=== PATIENT | female | born 1955 | race Caucasian/White ===

== ENCOUNTER → 2020-04-21 14:25 | Outpatient (BNVA) | payer MEDICARE, SELFPAY | PROVIDERS: PCP Internal Medicine; Visit Provider Orthopaedic Surgery | DX: M79.89 Other specified soft tissue disorders (principal) | CPT/HCPCS: 99202 ==

== ENCOUNTER 2020-05-20 09:51 | Day surgery (SDC) | payer MEDICARE, SELFPAY ==
[2020-05-19 09:39] VITALS: BMI 31.4
[2020-05-20 10:04] VITALS: BP 146/74; PULSE 64; RESP 18; TEMP 36.8; O2SAT 95
[2020-05-20 13:10] VITALS: BP 168/77; PULSE 51; RESP 16; O2SAT 98
--- NOTE | 2020-05-20 14:50 | MHC.SHP ---
Pre-Procedural Eval Section B Chief Complaint: soft tissue disorder Allergies: Allergies Allergy/AdvReac Type Severity Reaction Status Date / Time No Known Allergies Allergy Verified 04/21/20 15:02 Plan I have reviewed the history and physical and performed a pertinent physical examination on my patient. No changes have occurred unless specified.
--- NOTE | 2020-05-20 14:50 | W.PM.OPN ---
Operative Note Operative Note Date of Service: 05/20/20 Narrative: Preop diagnosis: 1. Left dorsal hand mass Postop diagnosis: 1. Left dorsal hand mass Procedure: 1. Left dorsal hand mass excisional biopsy, 5 mm Surgeon: Rena Mon MD Anesthesia: local block using 1% lidocaine with epinephrine Findings: 5 mm mobile, yellow dorsal hand mass sent for histopathology EBL: Less than 5 mL Specimens: Left dorsal hand mass Complications: None Disposition: Brought to recovery room in stable condition Plan: Follow-up for 7-10 days for wound check and suture removal, and to check pathology Indications: The patient is 64 years old, with a left dorsal hand mass that has been unresponsive to nonoperative management. The risks and benefits of operative treatment including but not limited to risk of damage to blood vessels, nerves, tendons, infection, persistent pain, persistent symptoms, or possible need for additional surgery were discussed with the patient and the patient wishes to proceed with surgery. Procedure: Once consent was obtained a local block was performed using a combination of 1% lidocaine with epinephrine. The patient was then brought back to the operating suite and placed on the operative table in supine position. A tourniquet was applied to the proximal aspect of the left upper extremity and the limb was prepped and draped in a standard surgical fashion. Once assured that we had a good block, a 1.2 cm longitudinal incision was made centered over the left dorsal hand mass over the dorsal aspect of the 2nd metacarpal neck . The incision was made through the skin to the subcutaneous tissues using a #15 blade. Dissection was made down to the level of the soft tissue mass using tenotomy scissors. The mass was approximate 4 mm x 5 mm, mobile, yellow in color and solid. It was attached by a stalk distally to an area near the 2nd metacarpal head. This was dissected free and placed on the back table be sent for histopathology.. At this point the wound was copiously irrigated with normal saline and hemostasis was obtained with a brief period of local pressure. The skin edges were reapproximated with some 5.0 nylon suture material and a sterile dressing was applied. The patient appears to have tolerated the procedure well and with no complications. All digits were well vascularized at the conclusion of the case.
== END 2020-05-20 13:30 | disposition home or self-care (01) ==
PROVIDERS: PCP Internal Medicine; Visit Provider Orthopaedic Surgery
PROC: (CPT 26115; principal; 2020-05-20 11:00)
DX: D17.22 Benign lipomatous neoplasm of skin and subcutaneous tissue of left arm (principal); M79.89 Other specified soft tissue disorders; I10 Essential (primary) hypertension; F32.9 Major depressive disorder, single episode, unspecified; F17.200 Nicotine dependence, unspecified, uncomplicated; Z79.899 Other long term (current) drug therapy
CPT/HCPCS: 26115; 88304

== ENCOUNTER → 2020-05-31 11:09 | Outpatient (BNVA) | payer MEDICARE, SELFPAY | PROVIDERS: PCP Internal Medicine; Visit Provider Orthopaedic Surgery | DX: Z48.817 Encounter for surgical aftercare following surgery on the skin and subcutaneous tissue (principal); Z87.2 Personal history of diseases of the skin and subcutaneous tissue | CPT/HCPCS: 99212 ==

== ENCOUNTER 2020-08-04 19:26 | Emergency (ER) | payer MEDICARE, SELFPAY ==
--- NOTE | ~2020-08-04 | CT_ITS ---
EXAMINATION: CT ABDOMEN AND PELVIS WITH CONTRAST CLINICAL INFORMATION: Left flank pain. Hematuria. COMPARISON: None TECHNIQUE: Multidetector volumetric images were obtained from the superior aspect of the liver through the pubic symphysis following administration 85 mL of Omnipaque 350 intravenous contrast. Sagittal and coronal reformatted images were obtained on the technologist's workstation. Oral contrast: No This CT examination was performed using dose optimization techniques as appropriate, variously including the following: *Automated exposure control *Adjustment of mA and/or kV according to patient size (this includes techniques or standardized protocols for targeted exams where dose is matched to indication/reason for exam; i.e. extremities or head) *Use of iterative reconstruction technique DLP: 762 mGy-cm FINDINGS: LUNG BASES: The visualized lung bases are unremarkable. LIVER, GALLBLADDER, AND BILIARY TREE: The liver is normal in size, shape, and attenuation. No focal hepatic lesion or biliary ductal dilatation is present. The gallbladder is unremarkable with no evidence of radiopaque gallstones, gallbladder wall thickening, or obvious pericholecystic inflammatory changes. PANCREAS: Unremarkable. SPLEEN: Unremarkable. ADRENAL GLANDS: Unremarkable. KIDNEYS AND URETERS: Left kidney: Mild hydronephrosis of the kidney. Mild distention of renal pelvis and calyces. There is a stone in the left renal pelvis measuring 0.9 x 0.6 cm. Density measurement 1097 Hounsfield units. This stone lies 10.3 cm from the posterior skin line. There is a less than 1 mm stone also in the lower pole left kidney. The kidney has normal cortical thickness and enhancement. Right kidney: Normal right kidney. No calculus or hydronephrosis. Normal cortical thickness and enhancement. BLADDER: Unremarkable. GASTROINTESTINAL TRACT: The small and large bowel are unremarkable. The appendix is unremarkable. ABDOMINAL WALL: No significant hernia is appreciated. LYMPH NODES: Normal. VASCULAR: Atherosclerotic vascular calcifications of aorta and iliac arteries. There is no aneurysm. PELVIC VISCERA: Unremarkable. OSSEOUS STRUCTURES: Unremarkable. CT/CT abdomen pelvis w con IMPRESSION: Mild hydronephrosis of left kidney. There is a 9 mm stone in the left renal pelvis.
[2020-08-04 20:52] VITALS: BP 148/73; PULSE 57; RESP 16; TEMP 36.9; O2SAT 97; BMI 32.3
[2020-08-04 21:59] VITALS: BP 154/74; PULSE 53; RESP 17; TEMP 36.8; O2SAT 96
[2020-08-04 22:37] LABS: Appearance Urine HAZY; Basophils Percent Auto 0.3 % (0-2); Color Urine YELLOW; Eosinophils Percent Auto 0.5 % (0-4); Glucose Urine UA NEG (NEG); Hematocrit 41.1 % (37-47); Hemoglobin 13.7 g/dl (12.0-16.0); Imm Gran Abs Auto 0.02 X10*3/uL (0.00-0.03); Imm Gran Pct Auto 0.3 % (0.0-0.4); Leukocyte Esterase Urine NEG (NEG); Lymphocytes Absolute Auto 2.2 X10*3/uL (1.2-4.9); Lymphocytes Percent Auto 30.1 % (20-40); MANUAL DIFF FLAG NO; Mean Corpuscular HGB Conc 33.3 g/dl (31.0-35.0); Mean Platelet Volume 9.7 fL (9.4-12.3); Monocytes Absolute Auto 0.5 X10*3/uL (0.1-1.2); Monocytes Percent Auto 6.4 % (2-11); Neutrophils Absolute Auto 4.6 X10*3/uL (2.0-8.3); Neutrophils Percent Auto 62.4 % (45-73); Nitrite Urine NEG (NEG); Platelet Count 198 X10*3/uL (160-400); Red Blood Count 4.42 X10*6/uL (4.20-5.50); Red Cell Distribution Width 12.5 % (11.0-16.0); Specific Gravity - Urine >= 1.030 (1.005-1.025); Urine Blood 3+ (NEG); Urine Ketones NEG (NEG); Urine Protein 1+ MG/DL (NEG-TRACE); White Blood Count 7.4 X10*3/uL (4.8-10.8)
[2020-08-04 22:46] LABS: Bacteria Urine 1+ /LPF; WBC Urine 0 /HPF (0-4)
--- NOTE | 2020-08-04 22:52 | ED.FEMALEGU ---
HPI - Female Genitourinary General Chief complaint: Urogenital-Female Stated complaint: blood in urine Time Seen by Provider: 08/04/20 22:50 Source: patient Mode of arrival: ambulatory History of Present Illness HPI Narrative: This is a 64-year-old female without significant past medical history who presents with nausea and an isolated episode of vomiting this morning with continued chills throughout the day but denies any diarrhea, abdominal pain, urinary pain/burning but has been having frequency. Patient does describe left flank ?discomfort? that is been ongoing for the past 2-3 weeks that she attributed to back pain. However, she does have a history significant for renal colic approximately 10 years ago. In addition, she noted that her urine was ?bloody? today. Related Data Home Medications Medication Instructions Recorded Confirmed amlodipine 5 mg tablet 5 mg PO DAILY 04/21/20 clonazepam 1 mg tablet 1 mg PO BID PRN 04/21/20 sertraline 100 mg tablet 100 mg PO DAILY 04/21/20 Previous Rx's Medication Instructions Recorded oxycodone-acetaminophen 1 tab PO Q6H PRN #5 tab 05/20/20 ondansetron HCl [Zofran] 4 mg PO Q8H PRN #7 tab 08/05/20 Allergies Allergy/AdvReac Type Severity Reaction Status Date / Time No Known Allergies Allergy Verified 08/04/20 20:56 Review of Systems Review of Systems: Pertinent positives and negatives as stated in HPI 10 point review systems otherwise negative. [facility] Past Medical History Source: nursing notes reviewed Medical History Anxiety and depression H/O renal calculi Hypertension Surgical History S/P cervical spinal fusion Social History Social History Alcohol intake: never Patient Tobacco Use Status: Current everyday Tobacco user Use of substances other than those prescribed or required for medical reasons: No Advance Directives: No Advance Directives Information Provided: Yes Patient : No Current occupational status: retired Current occupation: right handed Physical Exam Vital Signs: Vital Signs: Last Vital Signs Temp 98.3 F 08/04/20 21:59 Pulse 53 08/04/20 21:59 Resp 17 08/04/20 21:59 BP 154/74 H 08/04/20 21:59 Pulse Ox 96 08/04/20 21:59 Body Mass Index 32.3 VITAL SIGNS: Reviewed. GENERAL: Well developed, well nourished, in no acute distress. HEAD: Normocephalic/atraumatic EYES: PERRLA, EOMI NOSE: Nares patent bilateral OROPHARYNX: no oral lesions noted, posterior pharynx clear NECK: Supple, no adenopathy LUNGS: Normal breath sounds. No adventitious sounds or accessory muscle use. SpO2<96> CARDIOVASCULAR: Regular rate and rhythm without noted murmurs ABDOMEN: Soft, non-tender, non-distended with bowel sounds, no CVA tenderness NEUROLOGIC: Alert and oriented x 4. Course Course Course Narrative: 64-year-old female with history and clinical presentation suggestive of renal colic, pyelonephritis, less likely UTI or diverticulitis. Review of all investigations significant for hematuria secondary to renal colic with 9 mm stone in the left renal pelvis and associated mild hydronephrosis of the left kidney. I discussed this case with Dr. Ordoñez who recommends keeping the patient NPO and his office will contact her and schedule intervention in the afternoon. All results and findings as well as a plan were discussed with patient at bedside. MDM - Female Genitourinary Lab Data Result diagrams: 08/04/20 22:30 08/04/20 22:30 Labs: Lab Results 08/04/20 08/04/20 08/04/20 Range/Units 22:30 22:30 22:30 WBC 7.4 (4.8-10.8) X10*3/uL RBC 4.42 (4.20-5.50) X10*6/uL Hgb 13.7 (12.0-16.0) g/dl Hct 41.1 (37-47) % MCV 93.0 (80-98) fL MCH 31.0 (27.0-33.0) pg MCHC 33.3 (31.0-35.0) g/dl RDW 12.5 (11.0-16.0) % Plt Count 198 (160-400) X10*3/uL MPV 9.7 (9.4-12.3) fL Immature Gran % (Auto) 0.3 (0.0-0.4) % Neut % (Auto) 62.4 (45-73) % Lymph % (Auto) 30.1 (20-40) % [place] % (Auto) 6.4 (2-11) % Eos % (Auto) 0.5 (0-4) % Baso % (Auto) 0.3 (0-2) % Lymph # (Auto) 2.2 (1.2-4.9) X10*3/uL [place] # (Auto) 0.5 (0.1-1.2) X10*3/uL Eos # (Auto) 0.0 (0.0-0.4) X10*3/uL Baso # (Auto) 0.0 (0.0-0.2) X10*3/uL Abs Immat Gran (auto) 0.02 (0.00-0.03) X10*3/uL Absolute Neuts (auto) 4.6 (2.0-8.3) X10*3/uL Absolute Nucleated RBC 0.000 (0.0-0.012) X10*3/uL Nucleated RBC % (auto) 0.0 (0.0-0.2) /100WBC Sodium 141 (135-145) mmol/L Potassium 4.6 (3.3-5.1) mmol/L Chloride 108 (96-108) mmol/L Carbon Dioxide 26 (22-29) mmol/L Anion Gap 12 (12-20) BUN 21 H (9-16) mg/dL Creatinine 0.74 (0.5-1.4) mg/dL Estim Creat Clear Calc 89.4 Estimated GFR > 60 Random Glucose 95 (60-115) mg/dL Calcium 9.1 (8.4-10.2) mg/dL Urine Color YELLOW Urine Appearance HAZY Urine pH 6.0 (5.0-8.0) Ur Specific [place] >= 1.030 H (1.005-1.025) Urine Protein 1+ H (NEG-TRACE) MG/DL Urine Glucose (UA) NEG (NEG) MG/DL Urine Ketones NEG (NEG) MG/DL Urine Blood 3+ H (NEG) Urine Nitrite NEG (NEG) Ur Leukocyte Esterase NEG (NEG) Urine RBC 76-150 H (0) /HPF Urine WBC 0 (0-4) /HPF Ur Squamous Epith Cells NONE /LPF Urine Bacteria 1+ /LPF Urine Yeast 1+ /HPF Discharge Plan Discharge Clinical Impression: Kidney stone on left side, Hematuria Patient Disposition: Home, Self-Care Instructions: Kidney Stones (ED) Additional Instructions: 1. Do not eat or drink anything, but may take sips of water for your morning medications. 2. Please call the urology office in the morning to ensure appointment for stone removal in the afternoon. 3. Return to the ER for any acute worsening of your symptoms. Prescriptions: New ondansetron HCl [Zofran] 4 mg tablet 4 mg PO Q8H PRN (Reason: nausea and vomiting) Qty: 7 RF: 0 No Action oxycodone-acetaminophen 5-325 mg tablet 1 tab PO Q6H PRN (Reason: pain) Qty: 5 RF: 0 Referrals: Joey Rea MD [Physician] - 2 days (Eval for intervention of 9 mm left stone.) Pete Sepulveda MD [Primary Care Provider] - 2 days
[2020-08-04 23:03] LABS: Anion Gap 12 (12-20); Blood Urea Nitrogen 21 mg/dL (9-16); Calcium 9.1 mg/dL (8.4-10.2); Carbon Dioxide 26 mmol/L (22-29); Chloride 108 mmol/L (96-108); Creatinine Clr Calc Pharmacy 89.4; Estimated Glomerular Filt Rate > 60; Glucose Random 95 mg/dL (60-115); Potassium 4.6 mmol/L (3.3-5.1); Sodium 141 mmol/L (135-145)
[2020-08-04] MEDS: iohexoL 350 MG/ML 100 ML INFUS..BTL 85 ML IV (23:40)
[2020-08-04] MEDS: 0.9 % Sodium Chloride 1,000 ML 999 ML IV (23:46)
--- NOTE | 2020-08-05 00:10 | PC.NURSE ---
pt resting in bed watching tv, skin pwd respirations even unlabored. ivf infusing without difficulty. awaiting ct results. aware of plan of care.
== END 2020-08-05 01:40 | disposition home or self-care (01) ==
PROVIDERS: Emergency Provider Student in an Organized Health Care Education/Training Program; PCP Internal Medicine
DX: N13.2 Hydronephrosis with renal and ureteral calculous obstruction (principal); R31.9 Hematuria, unspecified; Z87.442 Personal history of urinary calculi; F17.210 Nicotine dependence, cigarettes, uncomplicated
CPT/HCPCS: 36415; 74177; 80048; 81001; 85025; 87086; 96360; 99284; Q9967

== ENCOUNTER → 2020-08-12 13:54 | Outpatient (BNVA) | payer MEDICARE, SELFPAY | PROVIDERS: PCP Internal Medicine; Visit Provider Urology | DX: N20.0 Calculus of kidney (principal) | CPT/HCPCS: 99202 ==

== ENCOUNTER 2020-10-06 06:52 | Day surgery (SDC) | payer MEDICARE, SELFPAY ==
[2020-09-30 09:00] VITALS: BMI 32.3
--- NOTE | 2020-10-05 10:25 | HO.ANESPROP2 ---
Documented by User: Sherry Estrellita 10/05/20 10:26 HPI - Anesthesia Eval Consult details Narrative: 64yo F for Left Lithotripsy ESW No previous ESWL on record PMFSH Active Problems Active Problems: All Active Problems (Updated 08/12/20 @ 14:28 by Joey Rea MD) Mass of soft tissue of left upper extremity (Acute) Lipoma (Acute) Nephrolithiasis (Acute) Past Medical History Medical History Anxiety and depression H/O renal calculi Hypertension Surgical History Surgical History Hx of hand surgery S/P cervical spinal fusion Social History Social History Alcohol intake: never Patient Tobacco Use Status: Current everyday Tobacco user Tobacco use type: Cigarette Advance Directives Information Provided: No Current occupational status: retired Current occupation: right handed Meds Allergies Allergy/AdvReac Type Severity Reaction Status Date / Time No Known Allergies Allergy Verified 10/06/20 07:24 Home Medications Medication Instructions Recorded Confirmed Last Taken Type amlodipine 5 mg tablet 5 mg PO DAILY 04/21/20 09/30/20 Unknown History clonazepam 1 mg tablet 1 mg PO BID PRN 04/21/20 09/30/20 Unknown History sertraline 100 mg tablet 100 mg PO DAILY 04/21/20 09/30/20 Unknown History triamcinolone acetonide 0.1 % 1 appl TOPICAL BID 08/12/20 09/30/20 Unknown History topical cream Exam Exam Date and Time: October 05, 2020 1025 Height,Weight and Vital Signs: Height 5 ft 6 in Weight 90.718 kg Pertinent Lab Results Pertinent Lab Results: Laboratory Tests 08/04/20 08/04/20 22:30 22:30 WBC 7.4 Hgb 13.7 Hct 41.1 Plt Count 198 Sodium 141 Potassium 4.6 Chloride 108 Carbon Dioxide 26 BUN 21 H Creatinine 0.74 Assessment and Plan Assessment Anesthesia Assessment: Chart Reviewed Documented by User: Claritza Ricks 10/06/20 08:11 PMFSH Past Medical History Medical History Anxiety and depression H/O renal calculi Hypertension Surgical History Surgical History Hx of hand surgery S/P cervical spinal fusion History of Problems with Anesthesia: No Social History Social History Alcohol intake: never Patient Tobacco Use Status: Current everyday Tobacco user Tobacco use type: Cigarette Advance Directives Information Provided: No Current occupational status: retired Current occupation: right handed Meds Allergies Allergy/AdvReac Type Severity Reaction Status Date / Time No Known Allergies Allergy Verified 10/06/20 07:24 Home Medications Medication Instructions Recorded Confirmed Last Taken Type amlodipine 5 mg tablet 5 mg PO DAILY 04/21/20 09/30/20 Unknown History clonazepam 1 mg tablet 1 mg PO BID PRN 04/21/20 09/30/20 Unknown History sertraline 100 mg tablet 100 mg PO DAILY 04/21/20 09/30/20 Unknown History triamcinolone acetonide 0.1 % 1 appl TOPICAL BID 08/12/20 09/30/20 Unknown History topical cream Exam Airway Mallampati Class: II TM Dist: >3cm Neck ROM: Full Loose/Missing/Broken Teeth: No Heart: RRR Lungs: CTA Assessment and Plan Assessment Anesthesia Assessment: Anesthesia Plan Discussed and Chart Reviewed Final Anesthetic Review History of Problems with Anesthesia: No NPO: Yes ASA Class: II Final Preanesthetic Review: Meds/Allgs Chart Reviewed, Consent Obtained/Reviewed and Anes Risks/Benef Reviewed Patient Risk: Low Procedure Risk: Low Anesthetic Plan Anesthetic Plan: MAC: Disposition: Standard PACU
--- NOTE | ~2020-10-06 | XR_ITS ---
EXAMINATION: XR ABDOMEN KUB CLINICAL INDICATION: Left stones COMPARISON: CT scan of August 04, 2020 TECHNIQUE: AP view of the abdomen. FINDINGS: The bowel gas pattern is normal with no evidence of ileus or obstruction. 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 Overlying the region of the left ureteral pelvic junction there is a 1.2 x 0.6 cm calculus. This appears similar in location to CT scan of August 04, 2020. Numerous phleboliths are seen about the pelvis. XR/XR KUB IMPRESSION: 1.2 x 0.6 cm calculus seen at the left renal pelvic junction region.
[2020-10-06 07:25] VITALS: BP 125/66; PULSE 59; RESP 16; TEMP 36.8; O2SAT 94
[2020-10-06] MEDS: Acetaminophen 325 MG TABLET 650 MG PO (07:37)
[2020-10-06] MEDS: Lactated Ringers 1,000 ML 100 ML IVCONT (07:46)
--- NOTE | 2020-10-06 09:25 | MHC.SHP ---
Pre-Procedural Eval Section A Date of Service: 10/06/20 Section B Chief Complaint: kidney stone Relevant Social History: None Present Medications: see Short Stay Collaborative assessment Medical History: No relevant PMH History of Previous Operations: No relevant previous surgery Allergies: Allergies Allergy/AdvReac Type Severity Reaction Status Date / Time No Known Allergies Allergy Verified 10/06/20 07:24 Review of Systems Sugical H&P ROS: Negative: Constitution, Cardiovascular, Respiratory, Neurological, Psychiatric, Hem-Onc, Allergic/Immunologic, Gastrointestinal, Genitourinary, Musculoskeletal, Integumentary, Endocrine and Eyes/Ears/Nose/Throat Exam Surgical H&P Exam: Normal: HEENT, Normal: Heart, Normal: Lungs, Normal: Extremities, Normal: Abdomen, Normal: Skin and Normal: Neurological Plan Diagnosis/Plan: Unchanged (left ESWL for stone) I have reviewed the history and physical and performed a pertinent physical examination on my patient. No changes have occurred unless specified.
--- NOTE | 2020-10-06 09:54 | W.PM.OPN ---
Operative Note Operative Note Date of Service: 10/06/20 Narrative: PreOperative Diagnosis: left Renal stones Post Operative Diagnosis: left Renal stones Procedure: left ESWL Surgeon: Dr Joey Rea Anesthesia: mac/sedation Indications for procedure: They understand ESWL may be a staged procedure and subsequent intervention may be required based on imaging after ESWL. They also understand there is a risk of bleeding, infection, damage to adjacent organs. Left 9mm renal stone Procedure: After informed consent was verified the patient was brought to the operating room and placed in a supine position. Anesthesia was performed per protocol. Safety pause time-out was performed. Imaging was in the room and laterality confirmed. ESWL was performed. The 1st 500 shocks were performed at 60 hertz. These were performed with increasing power. Once maximum power was reached the rate was increased to 180 hertz. A total of 2500 shocks were given. Fluoroscopy showed stone disintegration. They tolerated procedure well and was transferred to the recovery area upon completion.
[2020-10-06 10:05] VITALS: BP 128/68; PULSE 68; RESP 16; TEMP 36.4; O2SAT 97
[2020-10-06] MEDS: traMADoL HCL 50 MG TABLET PO (10:11)
[2020-10-06] MEDS: fentaNYL citrate/PF 100 MCG/2 ML VIAL 50 MCG IVPUSH (10:11)
[2020-10-06 10:17] VITALS: BP 136/72; PULSE 60; RESP 18; O2SAT 95
[2020-10-06 10:36] VITALS: BP 143/88; PULSE 62; RESP 16; O2SAT 96
[2020-10-06 11:02] VITALS: BP 150/76; PULSE 57; RESP 18; TEMP 36.4; O2SAT 97
== END 2020-10-06 11:55 | disposition home or self-care (01) ==
PROVIDERS: PCP Internal Medicine; Visit Provider Urology
PROC: (CPT 50590; principal; 2020-10-06 08:50)
DX: N20.0 Calculus of kidney (principal); Z87.442 Personal history of urinary calculi; I10 Essential (primary) hypertension; F32.9 Major depressive disorder, single episode, unspecified; F17.210 Nicotine dependence, cigarettes, uncomplicated; Z79.899 Other long term (current) drug therapy
CPT/HCPCS: 50590; 74018; J2250; J3010

== ENCOUNTER 2020-10-09 19:29 | Emergency (ER) | payer MEDICARE, SELFPAY | END 2020-10-09 19:55 | disposition left against medical advice (07) | PROVIDERS: Emergency Provider Emergency Medicine; PCP Internal Medicine | DX: R10.9 Unspecified abdominal pain (principal) ==

== ENCOUNTER → 2020-10-29 09:23 | Outpatient (BNVA) | payer MEDICARE, SELFPAY | PROVIDERS: PCP Internal Medicine; Visit Provider Urology | DX: N20.0 Calculus of kidney (principal) | CPT/HCPCS: Q3014 ==

== ENCOUNTER 2020-11-17 13:48 | Outpatient (REF) | payer MEDICARE, SELFPAY ==
--- NOTE | ~2020-11-17 | US_ITS ---
EXAMINATION: US RETROPERITONEAL LIMITED (RENAL ONLY) CLINICAL INFORMATION: Calculus of kidney. COMPARISON: KUB 10/06/2020. CT abdomen and pelvis 08/04/2020. TECHNIQUE: Real-time imaging of the kidneys. FINDINGS: RIGHT KIDNEY: 11.9 x 3.9 x 5.6 cm (SAG x AP x TRV). The kidney is normal in size, contour, and echogenicity. Renal cortical thickness is normal. No calculi or focal parenchymal lesions. No hydronephrosis. There is a small junctional parenchymal defect in the upper pole. LEFT KIDNEY: 11.9 x 4.3 x 5.9 cm (SAG x AP x TRV). The kidney is normal in size, contour, and echogenicity. Renal cortical thickness is normal. No focal parenchymal lesions or hydronephrosis. There is a small echogenic stone in the lower pole without caliectasis measuring 0.4 x 0.4 x 0.3 cm. US/US renal BI IMPRESSION: Small echogenic stone lower pole left kidney without caliectasis or hydronephrosis. Small junctional parenchymal defect upper pole right kidney. No echogenic right renal calculi or hydronephrosis.
== END 2020-11-17 13:49 | disposition home or self-care (01) ==
LOC: HO.US 13:48
PROVIDERS: PCP Internal Medicine; Visit Provider Urology
DX: N20.0 Calculus of kidney (principal)
CPT/HCPCS: 76775

== ENCOUNTER 2020-12-06 08:53 | Day surgery (SDC) | payer MEDICARE, SELFPAY ==
[2020-11-29 19:40] VITALS: BMI 32.3
--- NOTE | ~2020-12-06 | FL_ITS ---
EXAMINATION: XR FL WITH IMAGES CLINICAL INFORMATION: Left stone. COMPARISON: Previous renal ultrasound November [address] of the abdomen and pelvis August 2020 TECHNIQUE: Fluoroscopy performed by Dr. Joey Rea. Fluoroscopy Time: 0.6 minutes. DAP: 3.8 Gycm2. Images: 4. FINDINGS: Initial image demonstrates opacification of the left renal collecting system. Second image demonstrates a wire in the collecting system. The third image demonstrates wire in the left ureter and collecting system. Final image demonstrates the distal end of the left internal ureteral stent. FL/FL guidance in OR IMPRESSION: Fluoroscopic guidance for left retrograde exam and stent placement.
[2020-12-06 09:51] VITALS: BP 131/76; PULSE 66; RESP 16; TEMP 36.4; O2SAT 96
[2020-12-06] MEDS: Lactated Ringers 1,000 ML 100 ML IVCONT ×2 (10:05→11:07)
--- NOTE | 2020-12-06 10:13 | P.CONAN_ITS ---
[facility] Active Problems Active Problems: All Active Problems (Updated 11/29/20 @ 19:38 by Raissa Prakash RN) Mass of soft tissue of left upper extremity (Acute) Lipoma (Acute) Nephrolithiasis (Acute) Past Medical History Medical History (Updated 11/29/20 @ 19:38 by Raissa Prakash RN) Anxiety and depression H/O renal calculi Hypertension Post-operative nausea and vomiting Surgical History Surgical History (Updated 11/30/20 @ 08:13 by Sydney Skaggs RN) History of bilateral tubal ligation History of lithotripsy Hx of hand surgery S/P cervical spinal fusion History of Problems with Anesthesia: No Social History Social History Alcohol intake: never Patient Tobacco Use Status: Current everyday Tobacco user Tobacco use type: Cigarette Cigarette Packs Per Day: 0.5 Cigarettes Per Day: 10.0 Years Smoked: 20 Smoked in Last 30 Days: Yes Use of substances other than those prescribed or required for medical reasons: Yes Substance Use Frequency: Occasionally Are you DNR?: No Advance Directives: No Advance Directives Information Provided: No Advance Directives on File: No Recently lost weight without trying: No Nutrition Risks: No Nutritional Risk Current occupational status: retired Current occupation: right handed Meds Allergies Allergy/AdvReac Type Severity Reaction Status Date / Time fentanyl AdvReac Vomiting Verified 11/29/20 19:36 Home Medications Medication Instructions Recorded Confirmed Last Taken Type amlodipine 5 mg tablet 5 mg PO DAILY 04/21/20 11/29/20 Unknown History clonazepam 1 mg tablet 1 mg PO BID PRN 04/21/20 11/29/20 Unknown History sertraline 100 mg tablet 100 mg PO DAILY 04/21/20 11/29/20 Unknown History triamcinolone acetonide 0.1 % 1 appl TOPICAL BID 08/12/20 11/29/20 Unknown History topical cream allopurinol 100 mg tablet 100 mg PO DAILY tab 10/29/20 11/29/20 Unknown History ondansetron HCl 4 mg tablet 4 mg PO Q8H PRN tab 10/29/20 11/29/20 Unknown History ([place]) Exam Exam Date and Time: December 06, 2020 1013 Height,Weight and Vital Signs: Height 5 ft 6 in Weight 90.718 kg Last Vital Signs Temp 97.5 F 12/06/20 09:51 Pulse 66 12/06/20 09:51 Resp 16 12/06/20 09:51 BP 131/76 12/06/20 09:51 Pulse Ox 96 12/06/20 09:51 Airway Mallampati Class: II TM Dist: >3cm Neck ROM: Full Assessment and Plan Final Anesthetic Review History of Problems with Anesthesia: No
--- NOTE | 2020-12-06 11:03 | MHC.SHP ---
Pre-Procedural Eval Section A Date of Service: 12/06/20 Section B Chief Complaint: calculus of kidney Details of Present Illness: Prior ESWL on left kidney with residual left renal fragments Relevant Family History (Specify if Yes): No Relevant Social History: None Present Medications: see Short Stay Collaborative assessment Medical History: No relevant PMH History of Previous Operations: Relevant previous surgery/procedure and date(s) Allergies: Allergies Allergy/AdvReac Type Severity Reaction Status Date / Time fentanyl AdvReac Vomiting Verified 11/29/20 19:36 Review of Systems Sugical H&P ROS: Negative: Constitution, Cardiovascular, Respiratory, Neurological, Psychiatric, Hem-Onc, Allergic/Immunologic, Gastrointestinal, Genitourinary, Musculoskeletal, Integumentary, Endocrine and Eyes/Ears/Nose/Throat Exam Surgical H&P Exam: Normal: HEENT, Normal: Heart, Normal: Lungs, Normal: Extremities, Normal: Abdomen, Normal: Skin and Normal: Neurological Plan Diagnosis/Plan: Unchanged (Left ureteroscopy laser lithotripsy stent placement) I have reviewed the history and physical and performed a pertinent physical examination on my patient. No changes have occurred unless specified.
[2020-12-06] MEDS: levoFLOXacin 500 MG TABLET PO (11:09)
--- NOTE | 2020-12-06 11:57 | W.PM.OPN ---
Operative Note Operative Note Date of Service: 12/06/20 Narrative: PreOperative Diagnosis: Left Renal calculus Post Operative Diagnosis: Left renal calculus Procedure: - cystoscopy, left retrograde - left dilatation of ureteric orifice under fluoroscopy - left ureteroscopy, laser lithotripsy, stone basketing - left stent placement Surgeon: Dr Joey Rea Anesthesia: General Indications for procedure: Prior left ESWL. Persistent discomfort on left side. Imaging with 4 mm fragment. Recommendation for ureteroscopy laser lithotripsy given stone location lower pole. Procedure: After informed consent was verified patient was brought to the operating placed in supine position. Anesthesia was administered per protocol. Patient was placed in modified dorsal lithotomy position and prepped and draped in a sterile fashion. Safety pause time-out and side of surgery confirmed. Antibiotics confirmed. Twenty-two [place] cystoscope inserted per urethra. No abnormality noted of the urethra. Both ureteric orifices normal position. Left ureteric orifice was cannulated and retrograde examination was performed. No filling defects seen within the dye outline. Sensor guidewire placed Internal cannula of ureteric access sheath used is dilator. Ureteric access sheath placed the difficulty. Sensor guidewire removed. Flexible we digital ureteral scope placed to the level renal pelvis. Renal calices examined. Stone found in Will left lower calices. Using a basket we were able to manipulate the stone and eventually we were able to extract the stone with a single pass of the basket. The stone was removed and will be sent for analysis. Sensor guidewire placed. Ureteric access sheath removed. Six [place] by 24 cm double-J stent placed under fluoroscopic guidance with good coil seen within bladder. Patient tolerated the procedure well was extubated in operating room transferred in stable condition to recovery area. Pathology: Stone Drains: 6 [place] by 24 cm stent
[2020-12-06 12:03] VITALS: BP 151/86; PULSE 80; RESP 14; TEMP 36.1; O2SAT 100
[2020-12-06 12:08] VITALS: BP 160/81; PULSE 93; RESP 18; O2SAT 96
[2020-12-06 12:13] VITALS: BP 161/82; PULSE 85; RESP 18; O2SAT 96
[2020-12-06 12:18] VITALS: BP 155/73; PULSE 83; RESP 18; O2SAT 96
[2020-12-06 12:31] VITALS: BP 143/86; PULSE 75; RESP 18; TEMP 36.2; O2SAT 97
[2020-12-11 01:35] LABS: Stone Source LEFT KIDNEY STONE
== END 2020-12-06 13:35 | disposition home or self-care (01) ==
PROVIDERS: PCP Internal Medicine; Visit Provider Urology
PROC: (CPT 52352; principal; 2020-12-06 10:30)
DX: N20.0 Calculus of kidney (principal); Z87.442 Personal history of urinary calculi; I10 Essential (primary) hypertension; F41.8 Other specified anxiety disorders; Z79.899 Other long term (current) drug therapy; Z88.8 Allergy status to other drugs, medicaments and biological substances; F17.210 Nicotine dependence, cigarettes, uncomplicated
CPT/HCPCS: 52352; 52332; 82365; 88300; C1769; C1894; C2617; J1100; J1885; J2250; J2405; J3010; Q9967

== ENCOUNTER → 2020-12-14 12:57 | Outpatient (BNVA) | payer MEDICARE, SELFPAY | PROVIDERS: PCP Internal Medicine; Visit Provider Urology | DX: N20.0 Calculus of kidney (principal) | CPT/HCPCS: 52310; 99212 ==

== ENCOUNTER 2021-02-04 14:00 | Outpatient (REF) | payer MEDICARE, SELFPAY | END 2021-02-04 14:01 | disposition home or self-care (01) | LOC: HO.LAB 14:00 | PROVIDERS: Visit Provider Internal Medicine | DX: Z20.822 Contact with and (suspected) exposure to COVID-19 (principal) | CPT/HCPCS: C9803; U0003; U0005 ==

== ENCOUNTER → 2022-01-31 12:03 | Outpatient (BNVA) | payer MEDICARE, SELFPAY | PROVIDERS: PCP Internal Medicine; Visit Provider Psychiatry & Neurology Psychiatry | DX: F32.A Depression, unspecified (principal); F40.01 Agoraphobia with panic disorder; Z79.899 Other long term (current) drug therapy | CPT/HCPCS: 99212 ==

== ENCOUNTER → 2022-05-16 12:45 | Outpatient (BNVA) | payer MEDICARE, SELFPAY | PROVIDERS: PCP Internal Medicine; Visit Provider Psychiatry & Neurology Psychiatry | DX: F41.9 Anxiety disorder, unspecified (principal) | CPT/HCPCS: Q3014 ==

== ENCOUNTER 2022-08-30 13:26 | Outpatient (AMB) | payer MEDICARE, SELFPAY ==
--- NOTE | 2022-08-30 13:42 | A.OFFPSYCH_ITS ---
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 feels connected taking 50 mg zoloft had tried taper off of sertraline had relapse symptoms unclear if this was related to SSRI withdrawal The patient has been excited dating someone around her own age she feels committed in a relationship in their getting along quite well patient has been social and engaged has felt alone for a long time Past Psychiatric History: Patient has a history panic disorder with agoraphobia chronic anxiety Mental Status Exam Mental Status Exam Narrative: Mental Status Exam Narrative: Appearance: Casually dressed Behavior: Cooperative appropriate psychomotor: Within normal limits Speech: Normal volume and prosody Thought proccess logical and goal-directed Thought content: Future oriented no self-harming thoughts Mood: Euthymic Affect: Appropriate to mood full affect SI:denies HI:denies VH/AH:none Delusions: None Insight/judgment: Good insight and judgment Memory/cog: Intact Assessment and Plan Assessment & Plan (1) Panic disorder with agoraphobia: Status: Acute Code(s): F40.01 - Agoraphobia with panic disorder (2) Major depression in full remission: Status: Acute Code(s): F32.5 - Major depressive disorder, single episode, in full remission Plan Patient will try and decrease sertraline to 25 mg alternating with 50 mg to see if we can decrease sexual side effects while maintaining mood patient is in a new relationship feels connected seems to be going quite well we did discussed different aspects of this Counseling and coordination of Care Details-Self Mgmt counseling: Issues related to dating and relational issues after some many years. Medication management counseling: Effectiveness and Side effects Diagnosis and Prognosis Counseling: Adequacy of current interventions Details-Diagnosis/Prognosis counseling: Issues related to continue an SSRI and possibility of tapering on a much lower basis Details: I spent [] minutes reviewing the record, seeing the patient and documenting in the medical record. Counseling provided to the patient/caregiver as outlined below. Addressed patient/caregiver concerns regarding current medication regime including effective adherence. Addressed patient/caregiver concerns regarding diagnosis and prognosis including accuracy of diagnosis, prognosis over time, impact of diagnosis. Addressed patient/caregiver concerns regarding impact of recent stressors. [facility] Medical History (Updated 10/24/22 @ 23:44 by Ajit Brown MD) Anxiety and depression H/O renal calculi Hypertension Panic disorder with agoraphobia Post-operative nausea and vomiting Surgical History History of bilateral tubal ligation History of lithotripsy Hx of hand surgery S/P cervical spinal fusion Social History Alcohol intake: never Patient Tobacco Use Status: Current everyday Tobacco user Tobacco use type: Cigarette Cigarette Packs Per Day: 0.5 Cigarettes Per Day: 10.0 Years Smoked: 20 Current occupational status: retired Current occupation: right handed Social History: Patient is aware where of cancer she lives alone has not worked she is close with 3 children and grandchildren son has ptsd Substance History: None noted Trauma History: None noted except for trauma her gradually dying of cancer Coding Level of Care Code Est Pt Level 3 (44480) Therapy 30m w/E&M (63927) Diagnoses Panic disorder with agoraphobia F40.01 Major depression in full remission F32.5
== END 2022-08-30 14:50 | disposition home or self-care (01) ==
LOC: HO.HOP 13:26
PROVIDERS: PCP Internal Medicine; Visit Provider Psychiatry & Neurology Psychiatry
DX: F40.01 Agoraphobia with panic disorder (principal); F32.5 Major depressive disorder, single episode, in full remission
CPT/HCPCS: 90833; 99213

== ENCOUNTER → 2022-08-30 13:26 | Outpatient (BNVA) | payer MEDICARE, SELFPAY | PROVIDERS: PCP Internal Medicine; Visit Provider Psychiatry & Neurology Psychiatry | DX: F40.01 Agoraphobia with panic disorder (principal); F32.5 Major depressive disorder, single episode, in full remission | CPT/HCPCS: 90833; 99212 ==

== ENCOUNTER 2023-07-02 11:27 | Outpatient (AMB) | payer MEDICARE, SELFPAY ==
--- NOTE | 2023-07-02 11:47 | MHC.OFFVISPS ---
Intake Intake Visit Reasons: depression Allergies fentanyl Adverse Reaction (Verified 12/14/20 13:09) Vomiting Medication List - Last Reconciled 07/02/23 by Ajit Brown MD albuterol sulfate 90 mcg/actuation inhalation amlodipine 10 mg PO DAILY clonazepam 1 mg PO BID PRN ondansetron HCl (Zofran) 4 mg PO Q8H PRN pyridoxine (vitamin B6) 100 mg PO DAILY 90 days sertraline 50 mg PO DAILY tramadol 50 mg PO Q6H PRN triamcinolone acetonide 0.1% 1 appl topical BID HPI- Psychiatric Chief Complaint: depression HPI Narrative: Pt generally doing ok had pneumonia has some chronic sob ?copd pts mood generally stable has not been able to taper off klonapin continue on sertraline has been doing well and new relationship Past Psychiatric History: Patient has a history panic disorder with agoraphobia chronic anxiety Mental Status Exam Mental Status Exam Narrative: Mental Status Exam Narrative: Appearance: Casually dressed Behavior: Cooperative appropriate psychomotor: Within normal limits Speech: Normal volume and prosody Thought proccess logical and goal-directed Thought content: Future oriented no self-harming thoughts Mood: Euthymic Affect: Appropriate to mood full affect SI:denies HI:denies VH/AH:none Delusions: None Insight/judgment: Good insight and judgment Memory/cog: Intact Assessment and Plan Assessment & Plan (1) Major depression in full remission: Status: Acute Code(s): F32.5 - Major depressive disorder, single episode, in full remission (2) Panic disorder with agoraphobia: Status: Acute Code(s): F40.01 - Agoraphobia with panic disorder Plan encourage decreased klonapin cont sertraline reviewed behavioral skills Medications: Refilled sertraline 50 mg PO DAILY 90 tabs 1RF Counseling and coordination of Care Pt. Self Management counseling: Cognitive restructuring Medication management counseling: Effectiveness Diagnosis and Prognosis Counseling: Adequacy of current interventions Details: I spent [30] minutes reviewing the record, seeing the patient and documenting in the medical record. Counseling provided to the patient/caregiver as outlined below. Addressed patient/caregiver concerns regarding current medication regime including effective adherence. Addressed patient/caregiver concerns regarding diagnosis and prognosis including accuracy of diagnosis, prognosis over time, impact of diagnosis. Addressed patient/caregiver concerns regarding impact of recent stressors. [facility] Medical History (Updated 10/24/22 @ 23:44 by Ajit Brown MD) Panic disorder with agoraphobia Post-operative nausea and vomiting H/O renal calculi Anxiety and depression Hypertension Surgical History History of lithotripsy History of bilateral tubal ligation Hx of hand surgery S/P cervical spinal fusion Social History Alcohol intake: never Patient Tobacco Use Status: Current everyday Tobacco user Tobacco use type: Cigarette Cigarette Packs Per Day: 0.5 Cigarettes Per Day: 10.0 Years Smoked: 20 Current occupational status: retired Current occupation: right handed Social History: Patient is aware where of cancer she lives alone has not worked she is close with 3 children and grandchildren son has ptsd Substance History: None noted Trauma History: None noted except for trauma her gradually dying of cancer Coding Level of Care Code Est Pt Level 4 (90470) Diagnoses Major depression in full remission F32.5 Panic disorder with agoraphobia F40.01
== END 2023-07-02 13:19 | disposition home or self-care (01) ==
LOC: HO.HOP 11:27
PROVIDERS: PCP Internal Medicine; Visit Provider Psychiatry & Neurology Psychiatry
DX: F32.5 Major depressive disorder, single episode, in full remission (principal); F40.01 Agoraphobia with panic disorder
CPT/HCPCS: 99214

== ENCOUNTER → 2023-07-02 11:27 | Outpatient (BNVA) | payer MEDICARE, SELFPAY | PROVIDERS: PCP Internal Medicine; Visit Provider Psychiatry & Neurology Psychiatry | DX: F32.5 Major depressive disorder, single episode, in full remission (principal); F40.01 Agoraphobia with panic disorder | CPT/HCPCS: 99212 ==

== ENCOUNTER 2023-11-02 11:54 | Outpatient (AMB) | payer MEDICARE, SELFPAY ==
--- NOTE | 2023-11-02 13:26 | A.OFFPSYCH_ITS ---
Intake Intake Visit Reasons: depression Allergies fentanyl Adverse Reaction (Verified 12/14/20 13:09) Vomiting Medication List - Last Reconciled 11/02/23 by Ajit Brown MD albuterol sulfate 90 mcg/actuation inhalation clonazepam 1 mg PO BEDTIME PRN losartan 50 mg PO DAILY mirtazapine 7.5 mg PO BEDTIME ondansetron HCl (Zofran) 4 mg PO Q8H PRN sertraline 50 mg PO DAILY triamcinolone acetonide 0.1% 1 appl topical BID HPI- Psychiatric Chief Complaint: depression HPI Narrative: Patient has generally been doing quite well has been somewhat concerned regarding sexual side effects which she has been having with sertraline Including lack of desire anorgasmia. Her mood generally has been stable. We have tried tapering off of sertraline previously. She did have increased anxiety and was unable to discontinue unclear if withdrawal effect versus recurrence versus combination Past Psychiatric History: Patient has a history panic disorder with agoraphobia chronic anxiety Mental Status Exam Mental Status Exam Narrative: Mental Status Exam Narrative: Appearance: Casually dressed Behavior: Cooperative appropriate psychomotor: Within normal limits Speech: Normal volume and prosody Thought proccess logical and goal-directed Thought content: Future oriented no self-harming thoughts Mood: Some anxiety mild dysphoria Affect: Appropriate to mood full affect SI:denies HI:denies VH/AH:none Delusions: None Insight/judgment: Good insight and judgment Memory/cog: Intact Assessment and Plan Assessment & Plan (1) Panic disorder with agoraphobia: Status: Acute Code(s): F40.01 - Agoraphobia with panic disorder (2) Major depression in full remission: Status: Acute Code(s): F32.5 - Major depressive disorder, single episode, in full remission Plan Did discuss with patient possible interaction of tramadol on sertraline. Discussed addition of mirtazapine and trying to see if this will cause less sexual side effects and be able to eventually taper down and hopefully off of sertraline also discussed timing of taking sertraline and sexual side effects Medications: New mirtazapine 7.5 mg PO BEDTIME 30 tabs 2RF Changed From clonazepam 1 mg PO BEDTIME PRN Anxiety To clonazepam 0.5 - 1 mg (0.5 - 1 x 1 mg) PO BID PRN 45 tabs 2RF Anxiety 30 days Refilled sertraline 50 mg PO DAILY 90 tabs 1RF Discontinued tramadol Discontinued Reason: Patient no longer taking 50 mg PO Q6H PRN 14 tabs 0RF pain (scale score 4-6) Counseling and coordination of Care Details-Self Mgmt counseling: Discussed issues with chronic anxiety disorder some degree of minimal depressive symptoms and rule sertraline and sexual side effects discussed trial of mirtazapine 7.5 mg at bedtime risks benefits alternatives reviewed potential side effects Medication management counseling: Effectiveness, Side effects and Dosing range Diagnosis and Prognosis Counseling: Impact of diagnosis on life functions Details: I spent 30] minutes reviewing the record, seeing the patient and documenting in the medical record. Counseling provided to the patient/caregiver as outlined below. Addressed pat ient/caregiver concerns regarding current medication regime including effective adherence. Addressed patient/caregiver concerns regarding diagnosis and prognosis including accuracy of diagnosis, prognosis over time, impact of diagnosis. Addressed patient/caregiver concerns regarding impact of recent stressors. [facility] Medical History (Updated 10/24/22 @ 23:44 by Ajit Brown MD) Panic disorder with agoraphobia Post-operative nausea and vomiting H/O renal calculi Anxiety and depression Hypertension Surgical History History of lithotripsy History of bilateral tubal ligation Hx of hand surgery S/P cervical spinal fusion Social History Alcohol intake: never Patient Tobacco Use Status: Current everyday Tobacco user Tobacco use type: Cigarette Cigarette Packs Per Day: 0.5 Cigarettes Per Day: 10.0 Years Smoked: 20 Current occupational status: retired Current occupation: right handed Social History: Patient is aware where of cancer she lives alone has not worked she is close with 3 children and grandchildren son has ptsd Substance History: None noted Trauma History: None noted except for trauma her gradually dying of cancer Coding Level of Care Code Est Pt Level 4 (25621) Diagnoses Panic disorder with agoraphobia F40.01 Major depression in full remission F32.5
== END 2023-11-02 13:10 | disposition home or self-care (01) ==
LOC: HO.HOP 11:54
PROVIDERS: PCP Internal Medicine; Visit Provider Psychiatry & Neurology Psychiatry
DX: F40.01 Agoraphobia with panic disorder (principal); F32.5 Major depressive disorder, single episode, in full remission
CPT/HCPCS: 99214

== ENCOUNTER → 2023-11-02 11:54 | Outpatient (BNVA) | payer MEDICARE, SELFPAY | PROVIDERS: PCP Internal Medicine; Visit Provider Psychiatry & Neurology Psychiatry | DX: F40.01 Agoraphobia with panic disorder (principal); F32.5 Major depressive disorder, single episode, in full remission; Z71.89 Other specified counseling; Z79.899 Other long term (current) drug therapy | CPT/HCPCS: 99212 ==

== ENCOUNTER 2024-08-13 13:23 | Outpatient (REF) | payer MEDICARE, SELFPAY ==
[2024-08-13 15:56] LABS: TSH reflex Free T4 3.07 uIU/mL (0.32-4.0)
[2024-08-13 16:14] LABS: Folate 4.7 ng/mL (> or = 4.0)
[2024-08-13 16:15] LABS: Vitamin B12 466 pg/mL (200-900)
== END 2024-08-13 13:24 | disposition home or self-care (01) ==
LOC: HO.LAB 13:23
PROVIDERS: PCP Internal Medicine; Visit Provider Psychiatry & Neurology Psychiatry
DX: F40.01 Agoraphobia with panic disorder (principal); F32.5 Major depressive disorder, single episode, in full remission
CPT/HCPCS: 36415; 82607; 82746; 84443

== ENCOUNTER 2024-11-05 13:01 | Outpatient (AMB) | payer MEDICARE, SELFPAY ==
--- OUTSIDE RECORDS SUMMARY | 2023-05-12 13:35 | XMS_ITS | Encounter Summary ---
Author Organization [facility] Address [address] [place] [id number] Phone Care Team Providers Care Knitting Machine Operator Helper Name Role Phone Pete Sepulveda MD Primary Care Provider [phone] Encounter Details Date Type Department Care Team (Late st Contact Info) Description 05/12/2023 12:35 PM EST Hospital Encounter [facility] [address] [place] [address] [phone] Karen Mireles, PATIENT CARE SECRETARY [address] [place] [address] [email or web address] Social History Tobacco Use Types Packs/Day Years Used Date Smoking Tobacco: Every Day Smokeless Tobacco: Never Alcohol Use Standard Drinks/Week Comments Never 0 (1 standard drink = 0.6 oz pur e alcohol) Education Answer Date Recorded Are you interested in more education? Not on jj e 06/30/2022 Are you concerned about learning? Not on file 06/30/2022 No 06/30/2022 No 06/30/2022 Digital Access Answer Date Recorded No 07/29/2022 No 07/29/2022 Reliable internet access at home? Not on file 07/29/2022 Device with a working camera? Not on file Comments No Sex and Gender Information Value Date Recorded Sex Assigned at Not on file Legal Sex Female 9:51 PM EDT Gender Identity Not on file Sexual Orientation Not on file documented as of this encounter Plan of Treatment Not on file documented as of this encounter Procedures Procedure Name Priority Date/Time Associated Diagnosis Comments XR CHEST PA AND LATERAL 2 VIEWS Urgent/patient waiting 05/12/2023 12:51 PM EST Dyspnea, unspecified type documented in this encounter Results * XR CHEST PA AND LATERAL 2 VIEWS (05/12/2023 12:51 PM EST) Anatomical Region Laterality Modality Chest Computed Radiogr aphy 05/12/2023 12:5 9 PM EST Impressions 05/12/2023 1:54 PM EST No acute abnormality. No focal consolidation. ATTESTATION: Shamar Vuong as teaching physician, have reviewed the images for this case and if necessary edited the report originally created by Reuben Evans. Narrative 05/12/2023 1:54 PM EST XR CHEST PA AND LATERAL 2 VIEWS Referring clinician's provided indication for this examination in Epic: Cough; Dyspnea (Shortness of Breath) COMPARISON: None. FINDINGS: Devices/Tubes/Lines: None. Lungs: Left basilar attenuation which may represent subsegmental atelectasis or prominent pericardial fat pad. No focal consolidation or pulmonary edema. Pleura: No pleural effusion or pneumothorax. Heart/Mediastinum: Normal contours of the heart and mediastinum. Bones/Soft Tissues: No acute skeletal abnormality. Partially imaged cervical spinal fusion hardware. Procedure Note Shamar Wild MD - 05/12/2023 XR CHEST PA AND LATERAL 2 VIEWS Referring clinician's provided indication for this examination in Epic:Cough; Dyspnea (Shortness of Breath) COMPARISON: None. FINDINGS: Devices/Tubes/Lines: None. Lungs: Left basilar attenuation which may represent subsegmentalatelectasis or prominent pericardial fat pad. No focal consolidation orpulmonary edema. Pleura: No pleural effusion or pneumothorax. Heart/Mediastinum: Normal contours of the heart and mediastinum. Bones/Soft Tissues: No acute skeletal abnormality. Partially imagedcervical spinal fusion hardware. IMPRESSION: No acute abnormality. No focal consolidation. ATTESTATION: Shamar Vuong as teaching physician, have reviewed theimages for this case and if necessary edited the report originally createdby Reuben Evans. Karen Mireles PATIENT CARE SECRETARY IMG XR CHEST Final R esult documented in this encounter Visit Diagnoses Not on filedocumented in this encounter Care Teams Knitting Machine Operator Helper Relationship Specialty Start Date End Date Pete Sepulveda MD [address] [place] [phone] [email or web address] PCP - General Internal Medicine 03/30/20 documented as of this encounter Additional Source Comments The information contained in this document represents components of the legal health record. It is not the complete legal health record.[facility]
--- NOTE | 2024-11-05 13:38 | A.OFFPSYCH_ITS ---
Intake Intake Visit Reasons: depression Allergies fentanyl Adverse Reaction (Verified 12/14/20 13:09) Vomiting HPI- Psychiatric Chief Complaint: depression HPI Narrative: Patient seen psychiatric follow-up. Patient was to taper down on sertraline and continue fluoxetine however ended up discontinuing fluoxetine and remains on 25 mg sertraline patient having difficulty tapering off would get increased anxiety however on sertraline has gained a large amount of weight also sexual dysfunction. We have recommended behavioral strategies also for weight gain Past Psychiatric History: Patient has a history panic disorder with agoraphobia chronic anxiety Mental Status Exam Mental Status Exam Narrative: Mental Status Exam Narrative: Appearance: Casually dressed Behavior: Cooperative appropriate psychomotor: Within normal limits Speech: Normal volume and prosody Thought proccess logical and goal-directed Thought content: Future oriented no self-harming thoughts Mood: Some anxiety mild dysphoria Affect: Appropriate to mood full affect SI:denies HI:denies VH/AH:none Delusions: None Insight/judgment: Good insight and judgment Memory/cog: Intact Assessment and Plan Assessment & Plan (1) Panic disorder with agoraphobia: Status: Acute Code(s): F40.01 - Agoraphobia with panic disorder Plan Sertraline every other day for 2 weeks then stop fluoxetine 10 mg daily starting now to overlap and will hopefully help prevent withdrawal symptoms when sertraline has stopped plan to eventually discontinue fluoxetine as this can also contribute to weight gain significantly. Also sexual side effects. Continue clonazepam. Consider vilazodone or duloxetine if needed follow-up 3 weeks Patient to call if fluoxetine does not block withdrawal symptoms from going down on sertraline versus relapse symptoms Medications: New fluoxetine 10 mg PO DAILY 30 caps 1RF Changed From sertraline 50 mg PO DAILY 90 tabs 1RF To sertraline 25 mg (1/2 x 50 mg) PO DAILY 90 tabs 1RF Refilled clonazepam 0.5 - 1 mg (0.5 - 1 x 1 mg) PO BID PRN 45 tabs 3RF Anxiety 30 days clonazepam 0.5 - 1 mg (0.5 - 1 x 1 mg) PO BID PRN 45 tabs 1RF Anxiety 30 days Discontinued mirtazapine Discontinued Reason: Doctor's Order 7.5 mg PO BEDTIME 30 tabs 2RF Counseling and coordination of Care Details: I spent [] minutes reviewing the record, seeing the patient and documenting in the medical record. Counseling provided to the patient/caregiver as outlined below. Addressed patient/caregiver concerns regarding current medication regime including effective adherence. Addressed patient/caregiver concerns regarding diagnosis and prognosis including accuracy of diagnosis, prognosis over time, impact of diagnosis. Addressed patient/caregiver concerns regarding impact of recent stressors. [facility] Medical History (Updated 10/24/22 @ 23:44 by Ajit Brown MD) Panic disorder with agoraphobia Post-operative nausea and vomiting H/O renal calculi Anxiety and depression Hypertension Surgical History History of lithotripsy History of bilateral tubal ligation Hx of hand surgery S/P cervical spinal fusion Social History Alcohol intake: never Patient Tobacco Use Status: Current everyday Tobacco user Tobacco use type: Cigarette Cigarette Packs Per Day: 0.5 Cigarettes Per Day: 10.0 Years Smoked: 20 Current occupational status: retired Current occupation: right handed Social History: Patient is aware where of cancer she lives alone has not worked she is close with 3 children and grandchildren son has ptsd Substance History: None noted Trauma History: None noted except for trauma her gradually dying of cancer Coding Level of Care Code Est Pt Level 4 (68265) Diagnoses Panic disorder with agoraphobia F40.01
--- OUTSIDE RECORDS SUMMARY | 2024-11-05 15:21 | XMS_ITS | Patient Health Record ---
Author Organization [facility] Address [address] [place] [id number] Care Team Providers Care Sales Floor Associate Name Role Phone Ashly Archibald Primary Care Provider Emery Yang Unavailable [phone] Reason For Referral No Information Plan Of Treatment No Information
--- OUTSIDE RECORDS SUMMARY | 2024-11-05 15:21 | XMS_ITS | Clinical Summary ---
Author Organization [facility] Address [address] [place] [id number] Phone Care Team Providers Care [employer] Teacher Name Role Phone Pete Sepulveda MD Primary Care Provider [phone] Allergies No known active allergies Medications clonazePAM (KLONOPIN) 1 MG tablet 2 Active pyridoxine, vitamin B6, (B-6) 100 MG tablet Take 100 mg by mouth daily. 2 Active guaiFENesin-cod eine (ROBITUSSIN AC) 100-10 mg/5 mL liquid TAKE 10ML BY MOUTH EVERY 4 HOURS NEEDED FOR 5 DAYS 4 Active estradioL (ESTRACE) 0.01 % (0.1 mg/gram) vaginal cream APPLY 0.5 GRAM VAGINALLY ONCE A DAY FOR 2 WEEKS, THEN REDUCE TO TWICE A WEEK NEEDED 3 Active predniSONE (DELTASONE) 20 MG tablet Take 2 tablets by mouth every morning. 4 Active amLODIPine (NORVASC) 10 MG tablet Take 1 tablet by mouth every morning. 3 Active sertraline (ZOLOFT) 50 MG tablet Take 1 tablet by mouth every morning. 4 Active albuterol 90 mcg/actuation inhaler Inhale 2 puffs into the lungs every 6 (six) hours as needed for wheezing. 18 g 4 Active losartan (COZAAR) 25 MG tablet 25 mg. 4 Active Immunizations No known immunizations Social History Tobacco Use Types Packs/Day Years [...] on file Sexual Orientation Not on file Last Filed Vital Signs Vital Sign Reading Time Taken Comments Blood Pressure 142/80 10/05/2023 4:50 PM EDT Pulse 58 05/12/2023 12:20 PM EST Temperature 36.9 C (98.5 F) 05/12/2023 12:20 PM EST Respiratory Rate 18 05/12/2023 12:20 PM EST Oxygen Saturation 94% 05/12/2023 12:20 PM EST Inhaled Oxygen Concentration - - Weight 90.7 kg (200 lb) 05/12/2023 12:20 PM EST Height 167.6 cm (5' 6 ) 05/12/2023 12:20 PM EST Body Mass Index 32.28 05/12/2023 12:20 PM EST Plan of Treatment Health Maintenance Due Date Last Done Comments CREATININE LEVEL 1957 LIPID PANEL 1957 POTASSIUM LEVEL 1957 DEPRESSION SCREENING 1969 SMOKING Hx and SMOKELESS TOBACCO SCREENING 1970 HEPATITIS C SCREENING 12/26/1975 PNEUMOCOCCAL VACCINES (50+ years) (1 of 2 - PCV) 1976 SCREENING FOR DIABETES 1992 MAMMOGRAM 1997 COLOGUARD 2002 COLONOSCOPY 2002 COLORECTAL CANCER SCREENING 2002 FIT TEST 2002 FOBT 2002 SIGMOIDOSCOPY 2002 VIRTUAL COLONOSCOPY 2002 ZOSTER VACCINES (1 of 2) 12/26/2007 OSTEOPOROSIS SCREENING INITIAL (ONE-TIME) 2022 INFLUENZA VACCINE (#1) 2024 3, 12/20/2021, 12/13/2020, Additional history exists COVID-19 VACCINE (2024- season) 2024 12/20/2021, 02/08/2021, 06/23/2020, Additional history exists Adult Td,Tdap Booster 12/13/2030 12/13/2020, 011 RSV VACCINE (1 - 1-dose 75+ series) 2032 HEPATITIS A VACCINES Aged Out No long er eligible based on patient's age to complete this topic HIB VACCINES Aged Out No longer eligi ble based on patient's age to complete this topic MENINGOCOCCAL VACCINES (ACWY) Aged Out No longer eligible based on patient's age to complete this topic MENINGOCOCCAL VACCINES (B) Aged Out N o longer eligible based on patient's age to complete this topic Medical Devices Not on file Insurance [facility] MEDICARE O BLUE REPLACEMENT [place] BL[place] BL[place] BLUE REPLAC[place] BLUE REPLACEMENT Care Teams [employer] Chemistry Teacher Relationship Specialty Start Date End Date Pete Sepulveda MD [address] [place] [phone] [email or web address] PCP - General Internal Medicine 03/30/20 Additional Source Comments The information contained in this document represents components of the legal health record. It is not the complete legal health record.[facility]
--- OUTSIDE RECORDS SUMMARY | 2024-11-05 15:21 | XMS_ITS | Encounter Summary ---
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 Dyspnea, unspecified type (Primary Dx) Social History Tobacco Use Types Packs/Day Years Used Date Smoking Tobacco: Every Day Smokeless Tobacco: Never Education Answer Date Recorded Are you interested in more education? Not on jj e 06/30/2022 Are you concerned about learning? Not on file 06/30/2022 No 06/30/2022 No 06/30/2022 Digital Access Answer Date Recorded No 07/29/2022 No 07/29/2022 Reliable internet access at home? Not on file 07/29/2022 Device with a working camera? 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 It is not the complete legal health record.[facility]
== END 2024-11-05 18:16 | disposition home or self-care (01) ==
LOC: HO.HOP 13:01
PROVIDERS: PCP Internal Medicine; Visit Provider Psychiatry & Neurology Psychiatry
DX: F40.01 Agoraphobia with panic disorder (principal)
CPT/HCPCS: 99214

== ENCOUNTER → 2024-11-05 13:01 | Outpatient (BNVA) | payer MEDICARE, SELFPAY | PROVIDERS: PCP Internal Medicine; Visit Provider Psychiatry & Neurology Psychiatry | DX: F40.01 Agoraphobia with panic disorder (principal); Z79.899 Other long term (current) drug therapy | CPT/HCPCS: 99212 ==

== ENCOUNTER 2024-11-24 14:36 | Outpatient (AMB) | payer MEDICARE, SELFPAY ==
--- NOTE | 2024-11-24 12:13 | A.OFFPSYCH_ITS ---
Intake Intake Visit Reasons: depression Allergies fentanyl Adverse Reaction (Verified 12/14/20 13:09) Vomiting HPI- Psychiatric Chief Complaint: depression HPI Narrative: Patient seen psychiatric follow-up. Patient complains of ongoing weight gain. She and her have both been gaining weight together. She is aware the antidepressant she is on as significant contributing factor. There have also been lifestyle changes contributing to this. PHQ-9 JONE mildly elevated. Was unable to tolerate tapering off of sertraline previously. Sertraline low-dose does seem to help with blocking panic and helping with anxiety symptoms. Past Psychiatric History: Patient has a history panic disorder with agoraphobia chronic anxiety Mental Status Exam Mental Status Exam Narrative: Ged 7 PHQ-9 six Patient casually dressed some degree of anxiety noted had difficulty tapering down on the sertraline agreed to attempt at change Mood described as okay inappropriate content focused on medication issues related to side effects and weight gain question had done best on the combination clonazepam and SSRI no psychosis no SI future oriented doing well with her Agreeable to increase in walking and exercise impulse control intact Telehealth Telehealth Location of provider rendering services: practice address Location of patient: address on file Patient Identification confirmed using: Name, : Yes Telehealth method: video Patient verbally consented to treatment: Yes Patient verbally consented to billing insurance company: Yes Minutes spent on Phone/Video with Pt.: 12 Assessment and Plan Assessment & Plan (1) Panic disorder with agoraphobia: Status: Acute Code(s): F40.01 - Agoraphobia with panic disorder (2) Major 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 Try and tease out SSRI withdrawal syndrome versus benefit of on SSRI for chronic anxiety and panic low-dose dysthymia Medications: Refilled fluoxetine 10 mg PO DAILY 30 caps 1RF Discontinued sertraline Discontinued Reason: Patient Completed Course 25 mg (1/2 x 50 mg) PO DAILY 90 tabs 1RF Counseling and coordination of Care Pt. Self Management counseling: Breathing, Sleep hygiene, Behavior activation and Cognitive restructuring Medication management counseling: Effectiveness, Side effects, Dosing range and Duration Diagnosis and Prognosis Counseling: Impact of diagnosis on life functions and Adequacy of current interventions Details: I spent [] minutes reviewing the record, seeing the patient and documenting in the medical record. Counseling provided to the patient/caregiver as outlined below. Addressed patient/caregiver concerns regarding current medication regime including effective adherence. Addressed patient/caregiver concerns regarding diagnosis and prognosis including accuracy of diagnosis, prognosis over time, impact of diagnosis. Addressed patient/caregiver concerns regarding impact of recent stressors. [facility] Medical History (Updated 10/24/22 @ 23:44 by Ajit Brown MD) Panic disorder with agoraphobia Post-operative nausea and vomiting H/O renal calculi Anxiety and depression Hypertension Surgical History History of lithotripsy History of bilateral tubal ligation Hx of hand surgery S/P cervical spinal fusion Social History Alcohol intake: never Patient Tobacco Use Status: Current everyday Tobacco user Tobacco use type: Cigarette Cigarette Packs Per Day: 0.5 Cigarettes Per Day: 10.0 Years Smoked: 20 Current occupational status: retired Current occupation: right handed Social History: Patient is aware where of cancer she lives alone has not worked she is close with 3 children and grandchildren son has ptsd Substance History: None noted Trauma History: None noted except for trauma her gradually dying of cancer Coding Level of Care Code Tele Est Pt Level 3 (92442) Diagnoses Panic disorder with agoraphobia F40.01 Major depression in full remission F32.5
== END 2024-11-24 14:37 | disposition home or self-care (01) ==
LOC: HO.HOP 14:36
PROVIDERS: PCP Internal Medicine; Visit Provider Psychiatry & Neurology Psychiatry
DX: F40.01 Agoraphobia with panic disorder (principal); F32.5 Major depressive disorder, single episode, in full remission
CPT/HCPCS: 99213